=== PATIENT | female | born 1995 | race African-American/Black ===

== ENCOUNTER 2025-02-25 17:36 | Emergency (ER) | payer OTHER ==
[2025-02-25 18:04] LABS: Absolute Eosinophils 0.1 K/uL (0-0.5); Absolute Monocytes 0.3 K/uL (0.1-1.3); Absolute Neutrophil 3.6 K/uL (1.8-8.0); Basophils % 0.8 % (0-1.3); Eosinophils % 2.2 % (0-4.4); Hematocrit 36.1 % (36.0-45.0); Hemoglobin 11.8 g/dL (12.0-15.0); Lymphocytes % 32.8 % (15.3-44.8); MCH 27.5 pg (27.0-35.0); MCHC 32.8 g/dL (32.0-36.0); MCV 83.8 fL (80-100); MPV 9.8 fL (7.6-11.3); Monocytes % 4.3 % (3.3-12.3); Neutrophils % 59.9 % (41.7-73.7); Nucleated Red Blood Cells % 0.3 % (0-0); Platelets 174 thou/uL (152-406); Red Cell Distribution Width 17.8 % (12.1-15.2)
[2025-02-25 18:10] LABS: PT Prothrombin Time 12.8 SECONDS (10-13.0); Protime INR 1.13
[2025-02-25 18:24] LABS: Albumin 3.6 g/dL (3.4-5.0); Albumin/Globulin Ratio 0.8 (1.1-1.8); Anion Gap 11.6 mEq/L (5.0-15.0); Bilirubin Direct 0.2 mg/dL (0-0.2); Bilirubin Indirect, Calculated 0.4 mg/dL (0.2-0.8); Bilirubin Total 0.6 mg/dL (0.2-1.0); Globulin 4.4 g/dL (2.3-3.5); Magnesium 1.6 mg/dL (1.6-2.4); Potassium 3.6 mEq/L (3.5-5.1); Troponin High Sensitivity 23.5 pg/mL (<58.9)
--- NOTE | 2025-02-25 18:35 | RAD REPORT ---
EXAM: Chest Single View HISTORY: 29 years Female CHEST PAIN COMPARISON: None. FINDINGS: LUNGS/PLEURA: Hazy bilateral opacities. CARDIAC/MEDIASTINUM: Moderate cardiomegaly. UPPER ABDOMEN: No significant abnormality. BONES: No acute abnormality. LINES/TUBES/OTHER: AICD IMPRESSION: Pulmonary edema present. Moderate cardiomegaly.
--- NOTE | 2025-02-25 19:22 | RAD REPORT ---
EXAMINATION: Head C Spine Mpr Wo Con CLINICAL INDICATION: Female, 29 years old. Dizziness;Syncope TECHNIQUE: Axial CT images from the skull base to the vertex without intravenous contrast. Axial CT i mages through the cervical spine were obtained without intravenous contrast. Sagittal and coronal reformatted images were created from the data set. Coronal and sagittal reformatted images were creat ed from the data set. One or more of the following dose reduction techniques were used: Automated exposure control, adjustment of the mA and/or kV according to patient size, and/or iterative reconstr uction. Unless otherwise specified, incidental findings do not require dedicated imaging follow-up. [id number]. COMPARISON: No prior exam. FINDINGS: Head: INTRACRANIAL: No acute intracranial hemorrhage. No hydrocephalus. No mass effect or midline shift. No significant white matter disease.Partially empty sella, typically normal variant. VASCULATURE: No visualized abnormalities in the arteries or dural venous sinuses. SCALP/SKULL: No calvarial fracture identified. No acute soft tissue abnormality. SINUSES: The visualized paranasal sinuses are mostly clear. No significant mastoid fluid. Cervical spine: ALIGNMENT: The cervical spine has normal alignment without scoliosis or spondylolisthesis. BONE: Vertebral body heights are maintained. No aggressive osseous lesions. DEGENERATIVE: No significant focal degenerative changes. SOFT TISSUE: No significant abnormalities in the soft tissue of the neck. The visualized lung apices are clear. IMPRESSION: No acute intracranial abnormality. No acute fracture or traumatic malalignment of the cervical spine.
--- NOTE | 2025-02-25 19:25 | RAD REPORT ---
EXAM: Chest Abdomen Pelvis W Cont CLINICAL INDICATION: Female, 29 years syncope, fall TECHNIQUE: CT chest, abdomen and pelvis was performed, with IV contrast, as per department protocol. Axial, sagittal and coronal reconstructions were obtained. One or more of the following dose reduction techniques were used: Automated exposure control, adjustment of the mA and/or kV according to the patient size, and/or iterative reconstruction. Unless otherwise specified, incidental findings do not require dedicated imaging follow-up. [id number]. COMPARISON: No prior exam. FINDINGS: ---THORAX--- LOWER NECK AND CHEST WALL: Visualized thyroid gland and soft tissues are normal. Left upper chest wal l defibrillator.. LUNGS AND AIRWAYS: Patchy bilateral groundglass opacities with intralobular septal thickening.No adolfo nant or clearly suspicious nodule identified. PLEURA: Small bilateral pleural effusions. No pneumothorax. MEDIASTINUM AND LYMPH NODES: Enlarged mediastinal and hilar lymph nodes which are likely reactive. THORACIC AORTA: No thoracic aortic aneurysm. PULMONARY ARTERIES: Enlarged main pulmonary arteries could indicate pulmonary artery hypertension. Un able to evaluate for pulmonary emboli due to either protocol or lack of contrast. HEART: Moderate cardiomegaly. No coronary calcifications.No significant pericardial effusion. ---ABDOMEN/PELVIS--- UPPER GI: No significant abnormality. LIVER: No significant focal abnormality. GALLBLADDER/BILE DUCTS: Cholelithiasis without CT evidence of acute cholecystitis.? PANCREAS: No mass, ductal dilation, or jovany-pancreatic fluid. SPLEEN: Unremarkable. ADRENALS: No adrenal masses. KIDNEYS AND URETERS: No hydronephrosis.Limited evaluation for renal lesions in the absence of IV cont rast. ABDOMINAL AORTA AND OTHER VESSELS: Normal caliber aorta and IVC. PERITONEUM: No abnormal free fluid. No free air. LYMPH NODES: No pathologic lymphadenopathy. ABDOMINAL WALL: Unremarkable SMALL BOWEL/COLON: Small bowel has normal course and caliber. No colonic wall thickening or pericolon ic inflammatory changes. URINARY BLADDER: Underdistended but grossly unremarkable. REPRODUCTIVE ORGANS: No pathologic process. ---COMBINED--- MUSCULOSKELETAL: No acute or suspicious osseous abnormality. ADDITIONAL FINDINGS: None. IMPRESSION: Pulmonary edema with small bilateral pleural effusions. Moderate cardiomegaly. No acute findings within the abdomen or pelvis.
--- NOTE | 2025-02-25 19:38 | EDPHYS ---
Physician Documentation [facility] Name: Laura Henry Age: 29 yrs Sex: Female : 1995 Arrival Date: 02/25/2025 Time: 17:36 Bed 3 Private MD: ED Physician Ronaldo Tello HPI: 02/25 17:54 This 29 yrs old Female presents to ER via Unassigned with complaints of jessie syncope. 17:54 syncope. The patient has experienced syncope, became unresponsive. Onset: The jessie symptoms/episode began/occurred just prior to arrival. Duration: This was a single episode, that lasted 4 minute(s). Context: the episode(s) was witnessed, by family, , occurred at a store. Associated injury: The patient did not suffer any apparent associated injury. Associated signs and symptoms: Pertinent positives: weakness. Current symptoms: Currently, the patient is not experiencing any symptoms, the patient feels back to baseline. Severity of symptoms: At their worst the symptoms were moderate in the emergency department the symptoms have improved moderately. Historical: - Allergies: 17:50 No Known Allergies; jb4 - Home Meds: 17:50 Lisinopril Oral [Active]; Metoprolol Tartrate Oral [Active]; jb4 - PMHx: 17:50 CHF; HTN; jb4 - PSHx: 17:50 pacemaker; jb4 - Immunization history:: Adult Immunizations up to date. - Infectious Disease History:: Denies. - Family history:: not pertinent. - Social history:: Smoking status: Patient denies any tobacco usage or history of. ROS: 18:03 Constitutional: Negative for fever, chills, and weight loss, Eyes: Negative for injury, jessie pain, redness, and discharge, ENT: Negative for injury, pain, and discharge, Neck: Negative for injury, pain, and swelling, Cardiovascular: Negative for chest pain, palpitations, and edema, Respiratory: Negative for shortness of breath, cough, wheezing, and pleuritic chest pain, Abdomen/GI: Negative for abdominal pain, nausea, vomiting, diarrhea, and constipation, Back: Negative for injury and pain, : Negative for injury, bleeding, discharge, and swelling, MS/Extremity: Negative for injury and deformity, Skin: Negative for injury, rash, and discoloration, Neuro: Negative for headache, weakness, numbness, tingling, and seizure, Psych: Negative for depression, anxiety, suicide ideation, homicidal ideation, and hallucinations, Allergy/Immunology: Negative for hives, rash, and allergies, Endocrine: Negative for neck swelling, polydipsia, polyuria, polyphagia, and marked weight changes, Hematologic/Lymphatic: Negative for swollen nodes, abnormal bleeding, and unusual bruising, 18:03 Neuro: Positive for syncope, Exam: 18:03 Constitutional: This is a well developed, well nourished patient who is awake, alert, jessie and in no acute distress. Head/Face: Normocephalic, atraumatic. Eyes: Pupils equal round and reactive to light, extra-ocular motions intact. Lids and lashes normal. Conjunctiva and sclera are non-icteric and not injected. Cornea within normal limits. Periorbital areas with no swelling, redness, or edema. ENT: Nares patent. No nasal discharge, no septal abnormalities noted. Tympanic membranes are normal and external auditory canals are clear. Oropharynx with no redness, swelling, or masses, exudates, or evidence of obstruction, uvula midline. Mucous membranes moist. Neck: Trachea midline, no thyromegaly or masses palpated, and no cervical lymphadenopathy. Supple, full range of motion without nuchal rigidity, or vertebral point tenderness. No Meningismus. Chest/axilla: Normal chest wall appearance and motion. Nontender with no deformity. No lesions are appreciated. Cardiovascular: Regular rate and rhythm with a normal S1 and S2. No gallops, murmurs, or rubs. Normal PMI, no JVD. No pulse deficits. Respiratory: Lungs have equal breath sounds bilaterally, clear to auscultation and percussion. No rales, rhonchi or wheezes noted. No increased work of breathing, no retractions or nasal flaring. Abdomen/GI: Soft, non-tender, with normal bowel sounds. No distension or tympany. No guarding or rebound. No evidence of tenderness throughout. Back: No spinal tenderness. No costovertebral tenderness. Full range of motion. Skin: Warm, dry with normal turgor. Normal color with no rashes, no lesions, and no evidence of cellulitis. MS/ Extremity: Pulses equal, no cyanosis. Neurovascular intact. Full, normal range of motion., bilateral aka Neuro: Awake and alert, GCS 15, oriented to person, place, time, and situation. Cranial nerves II-XII grossly intact. Motor strength 5/5 in all extremities. Sensory grossly intact. Cerebellar exam normal. Normal gait. Psych: Awake, alert, with orientation to person, place and time. Behavior, mood, and affect are within normal limits. 18:03 ECG was reviewed by the Attending Physician. 18:03 Neuro: Orientation: is normal, appropriate for stated age, no acute changes, Mentation: is normal, appropriate for stated age, no acute changes, Memory: is normal, appropriate for stated age, no acute changes, Cranial nerves: grossly normal, is grossly normal based on the patient's age, no acute changes, Motor: is normal, is grossly normal based on the patient's age, no acute changes, moves all fours, strength is normal, Gait: not tested. seizure activity, is not displayed by the patient, 18:10 ECG was reviewed by the Attending Physician. [facility] Vital Signs: 17:50 BP 150 / 114; Pulse 78; Resp 30; Temp 97.8(O); Pulse Ox 100% on R/A; Weight 86.64 kg jb4 (M); Height 5 ft. 4 in. (R); Pain 0/10; 19:00 BP 139 / 103; Pulse 85; Resp 28 S; Pulse Ox 99% on R/A; jb4 21:00 BP 150 / 106; Pulse 80; Resp 24; Pulse Ox 99% on 2 lpm NC; jb4 17:50 Body Mass Index 32.78 (86.64 kg, 162.56 cm) [facility] 17:50 Pain Scale: Adult jb4 MDM: 17:43 Medical Screening Exam initiated [facility] 18:05 Differential Diagnosis altered mental status, sepsis, flu. Differential Diagnosis: [facility] cardiac arrhythmia, emotional response, GI bleed, idiopathic syncope, pseudo seizure, seizure, sepsis, transient ischemic attack, vasovagal episode. Data reviewed: vital signs, nurses notes, lab test result(s), EKG, radiologic studies, CT scan, plain films. Consideration of Admission/Observation Patient was admitted/placed on observation. Escalation of care including admission/observation considered. I considered the following discharge prescriptions or medication management in the emergency department Medications were administered in the Emergency Department. See MAR. Independent interpretation of the following test(s) in the Emergency Department EKG: See my EKG interpretation above. Test considered but Not performed: Ultrasound no 2 d echo. Historians other than the Patient: Spouse/Significant Other: so informed. Care significantly affected by the following chronic conditions: Hypertension, Obesity. Counseling: I had a detailed discussion with the patient and/or guardian regarding the historical points, exam findings, and any diagnostic results supporting the discharge/admit diagnosis, lab results, radiology results, the need for further work-up and treatment in the hospital. 02/25 17:45 Order name: Basic Metabolic Panel; Complete Time: 19:15 [facility] 02/25 17:45 Order name: CBC with Diff; Complete Time: 19:15 [facility] 02/25 17:45 Order name: LFT's; Complete Time: 19:15 [facility] 02/25 17:45 Order name: Magnesium; Complete Time: 19:15 [facility] 02/25 17:45 Order name: NT PRO-BNP; Complete Time: 19:15 [facility] 02/25 17:45 Order name: PT-INR; Complete Time: 19:15 [facility] 02/25 17:45 Order name: Troponin HS; Complete Time: 19:15 [facility] 02/25 17:45 Order name: Test, Serum; Complete Time: 19:15 [facility] 02/25 17:45 Order name: XRAY Chest (1 view); Complete Time: 19:15 [facility] 02/25 18:09 Order name: Head C Spine Mpr Wo Con; Complete Time: 19:26 EDMS 02/25 18:22 Order name: Chest Abdomen Pelvis W Cont; Complete Time: 19:26 EDMS 02/25 17:45 Order name: Cardiac monitoring; Complete Time: 18:11 [facility] 02/25 17:45 Order name: EKG - Nurse/Tech; Complete Time: 18:11 [facility] 02/25 17:45 Order name: IV Saline Lock; Complete Time: 18:11 [facility] 02/25 17:45 Order name: Labs collected and sent; Complete Time: 18:11 [facility] 02/25 17:45 Order name: O2 Per Protocol; Complete Time: 18:11 [facility] 02/25 17:45 Order name: O2 Sat Monitoring; Complete Time: 18:11 [facility] EC:10 Rate is 81 beats/min. Rhythm is regular. QRS Marshall is Normal. CO interval is normal. QRS jessie interval is normal. QT interval is prolonged at 492 msec. No Q waves. T waves are Normal. No ST changes noted. Clinical impression: NSR w/ Non-specific ST/T Changes. Interpreted by me. Reviewed by me. Administered Medications: 20:29 Drug: Nitroglycerin Transdermal Ointment 2 % 1 inches Transdermal once Route: jb4 Transdermal; Site: anterior chest wall; 20:30 Drug: Furosemide IVP 40 mg IVP once; give over 2 minutes Route: IVP; Site: left jb4 antecubital; 20:30 Drug: Magnesium Sulfate IVPB 1 grams IVPB once over 1 hrs Route: IVPB; Infused Over: 1 jb4 hrs; Site: right antecubital; Disposition Summary: 02/25/25 19:37 Transfer Ordered Notes: Transfer Location: [facility] jessie Reason: Higher level of care jessie Condition: Fair jessie Problem: an acute exacerbation jessie Symptoms: have improved jessie Accepting Physician: to [facility] cardio [facility] team , tele(02/25/25 23:13) jb4 Diagnosis - Syncope Near jessie - Chronic combined systolic (congestive) and diastolic (congestive) heart failure jessie - Cardiomegaly jessie - Unspecified kidney failure jessie - Obesity, unspecified jessie - Pleural effusion, not elsewhere classified - bilateral jessie - Presence of cardiac pacemaker - Defibrillator jessie Forms: - Medication Reconciliation Form jessie - SBAR form jessie Signatures: Dispatcher [employer] EDMS Ronaldo Tello MD MD cha Bryson, James RN RN jb4 Corrections: (The following items were deleted from the chart) 17:46 17:46 Chest Single View+RAD.RAD.BRZ ordered. EDMS EDMS 17:46 17:46 Head C Spine Cap Wo Con+CT.RAD.BRZ ordered. EDMS EDMS 23:13 19:37 to [facility] cardio white team , tele jessie jb4
--- NOTE | 2025-02-25 19:38 | ER ---
Nurse's Notes [facility] Name: Laura Henry Age: 29 yrs Sex: Female : 1995 Arrival Date: 02/25/2025 Time: 17:36 Bed 3 Private MD: Diagnosis: Syncope Near;Chronic combined systolic (congestive) and diastolic (congestive) heart failure;Cardiomegaly;Unspecified kidney failure;Obesity, unspecified;Pleural effusion, not elsewhere classified-bilateral;Presence of cardiac pacemaker-Defibrillator Presentation: 02/25 17:50 Onset of symptoms was February 25, 2025. jb4 17:50 Chief complaint: EMS states: Pt was going into [employer], started to feel dizzy and jb4 lightheaded. All she remembers after is waking up with people around her. Pulse felt low on scene, is now NSR with some pvc's, BGL 292, placed on NRB due to being 92% on 2L, 98%on NRB. Coronavirus screen: At this time, the client does not indicate any symptoms associated with coronavirus-19. Ebola Screen: No symptoms or risks identified at this time. Initial Sepsis Screen: Does the patient meet any 2 criteria? No. Patient's initial sepsis screen is negative. Does the patient have a suspected source of infection? No. Patient's initial sepsis screen is negative. Risk Assessment: Do you want to hurt yourself or someone else? Patient reports no desire to harm self or others. 17:50 Acuity: ASHLI 2 jb4 17:50 Method Of Arrival: EMS: [facility] jb4 Historical: - Allergies: 17:50 No Known Allergies; jb4 - Home Meds: 17:50 Lisinopril Oral [Active]; Metoprolol Tartrate Oral [Active]; jb4 - PMHx: 17:50 CHF; HTN; jb4 - PSHx: 17:50 pacemaker; jb4 - Immunization history:: Adult Immunizations up to date. - Infectious Disease History:: Denies. - Family history:: not pertinent. - Social history:: Smoking status: Patient denies any tobacco usage or history of. Screenin:25 [facility] ED Fall Risk Assessment (Adult) History of falling in the last 3 months, jb4 including since admission Yes- single mechanical fall (1 pt) Confusion or Disorientation No (0 pts) Intoxicated or Sedated No (0 pts) Impaired Gait No (0 pts) Mobility Assist Device Used No (0 pt) Altered Elimination No (0 pt) Score/Fall Risk Level 0 - 2 = Low Risk Oriented to surroundings, Maintained a safe environment. Abuse screen: Denies threats or abuse. Nutritional screening: No deficits noted. Tuberculosis screening: No symptoms or risk factors identified. Assessment: 17:50 General: Appears distressed, uncomfortable, ill, obese, Behavior is cooperative, jb4 anxious. Pain: Denies pain. Neuro: Level of Consciousness is awake, alert, obeys commands, Oriented to person, place, time, situation. Cardiovascular: Skin is warm, diophoretic. Respiratory: Airway is patent Respiratory effort is even, labored, Respiratory pattern is symmetrical, tachypnea. Derm: Skin is intact, Skin is diaphoretic, Skin is normal, Skin temperature is warm. 17:50 Musculoskeletal: Circulation, motion, and sensation intact. Range of motion: intact in jb4 all extremities. 18:00 Reassessment: Patient appears in no apparent distress at this time. Patient and/or jb4 family updated on plan of care and expected duration. Pain level reassessed. Patient is alert, oriented x 3, equal unlabored respirations, skin warm/dry/pink. 19:00 Reassessment: Patient appears in no apparent distress at this time. Patient and/or jb4 family updated on plan of care and expected duration. Pain level reassessed. Patient is alert, oriented x 3, equal unlabored respirations, skin warm/dry/pink. 20:00 Reassessment: Patient appears in no apparent distress at this time. Patient and/or jb4 family updated on plan of care and expected duration. Pain level reassessed. Patient is alert, oriented x 3, equal unlabored respirations, skin warm/dry/pink. 21:00 Reassessment: Patient appears in no apparent distress at this time. Patient and/or jb4 family updated on plan of care and expected duration. Pain level reassessed. Patient is alert, oriented x 3, equal unlabored respirations, skin warm/dry/pink. 22:00 Reassessment: Patient appears in no apparent distress at this time. Patient and/or jb4 family updated on plan of care and expected duration. Pain level reassessed. Patient is alert, oriented x 3, equal unlabored respirations, skin warm/dry/pink. 23:00 Reassessment: Patient appears in no apparent distress at this time. Patient and/or jb4 family updated on plan of care and expected duration. Pain level reassessed. Patient is alert, oriented x 3, equal unlabored respirations, skin warm/dry/pink. Vital Signs: 17:50 BP 150 / 114; Pulse 78; Resp 30; Temp 97.8(O); Pulse Ox 100% on R/A; Weight 86.64 kg jb4 (M); Height 5 ft. 4 in. (R); Pain 0/10; 19:00 BP 139 / 103; Pulse 85; Resp 28 S; Pulse Ox 99% on R/A; jb4 21:00 BP 150 / 106; Pulse 80; Resp 24; Pulse Ox 99% on 2 lpm NC; jb4 17:50 Body Mass Index 32.78 (86.64 kg, 162.56 cm) jb4 17:50 Pain Scale: Adult [facility] ED Course: 17:40 Patient arrived in ED. bd 17:43 Ronaldo Tello MD is Attending Physician. jessie 17:50 Arm band placed on right wrist. jb4 17:54 Radiology exam delayed due to lab results not completed at this time. (HCG) 4 test not completed at this time. 18:00 Inserted saline lock: 18 gauge in right antecubital area, using aseptic technique. jb4 Blood collected. 18:00 Initial lab(s) drawn, by me, sent to lab. EKG done. jb4 18:11 Basic Metabolic Panel Sent. jb4 18:11 LFT's Sent. jb4 18:11 Troponin HS Sent. jb4 18:11 Magnesium Sent. jb4 18:11 NT PRO-BNP Sent. jb4 18:11 Test, Serum Sent. jb4 18:15 XRAY Chest (1 view) In Process Unspecified. EDMS 18:20 Triage completed. jb4 18:25 Patient has correct armband on for positive identification. Bed in low position. Call [facility] light in reach. Side rails up X 1. Provided Education on: plan of care. 19:05 Head C Spine Mpr Wo Con In Process Unspecified. EDMS 19:05 Chest Abdomen Pelvis W Cont In Process Unspecified. EDMS 19:35 Maddie Roland, RN is Primary Nurse. kd3 22:10 Dr. Tello called [facility] for transfer talked to Alberto Franco 1945 Dr. You Walters accepted pt 6. 1945 Alberto Franco admin approval to [facility] room 935 report [phone] fax [phone] called [facility] for transfer talked to Jose A. Administered Medications: 20:29 Drug: Nitroglycerin Transdermal Ointment 2 % 1 inches Transdermal once Route: jb4 Transdermal; Site: anterior chest wall; 20:30 Drug: Furosemide IVP 40 mg IVP once; give over 2 minutes Route: IVP; Site: left jb4 antecubital; 20:30 Drug: Magnesium Sulfate IVPB 1 grams IVPB once over 1 hrs Route: IVPB; Infused Over: 1 jb4 hrs; Site: right antecubital; Outcome: 19:37 ER care complete, transfer ordered by MD. roman 23:13 Transferred by ground EMS to [facility], Transfer form jb4 completed. X-rays sent w/ patient. 23:13 Condition: stable 23:13 Discharge instructions given to patient, Instructed on the need for transfer, Demonstrated understanding of instructions, 23:13 Patient left the ED. jb4 Signatures: Dispatcher [employer] EDMS Argelia Castle Corey, MD MD cha Pinkerton, Shawna sp Bryson, James, RN RN jb4 Maddie Roland, RN RN kd3 Osvaldo Valente jc4
[2025-02-25] MEDS ORDERED: NITROGLYCERIN 1 GM PKT TD ONE (19:51)
[2025-02-25] MEDS ORDERED: FUROSEMIDE 40 MG/4 ML VIAL ONE (19:51)
[2025-02-25] MEDS ORDERED: MAGNESIUM SULFATE 1 gm IVPB 1 GM/100 ML BAG IV ONE (20:14)
[2025-02-25 23:37] VITALS: TEMP 97.8
[2025-02-25 23:43] VITALS: O2SAT 99
[2025-02-25 23:44] VITALS: BP 150/106
--- NOTE | 2025-02-26 11:40 | EKG ---
Test Date: 2025-02-25 Test Time: 18:07:52 Wrapper Sorter: LUZMARIA MEASUREMENT RESULTS: Intervals: Rate: 81 [place]: 194 QRSD: 92 QT: 424 QTc: 492 [place]: P: 59 NJ: 194 QRS: 74 T: 48 INTERPRETIVE STATEMENTS: Normal sinus rhythm Prolonged QT Abnormal ECG No previous ECG available for comparison Electronically Signed On 02-26-25 11:38:45 CDT by Haile Beasley
== END 2025-02-25 23:13 | disposition short-term general hospital (02) ==
LOC: ER 17:36
DX: R55 Syncope and collapse (principal); I50.42 Chronic combined systolic (congestive) and diastolic (congestive) heart failure; J90 Pleural effusion, not elsewhere classified; I51.7 Cardiomegaly; N19 Unspecified kidney failure; E66.9 Obesity, unspecified; Z95.810 Presence of automatic (implantable) cardiac defibrillator; I10 Essential (primary) hypertension
CPT/HCPCS: 93005; 85025; 80048; 36415; 83735; 84703; 85610; 80076; 84484; 83880; 70450; 72125; 71260; 74177; 71045; 99285; J3475; J1938